=== PATIENT | male | born 2000 | race Two or more races ===

== ENCOUNTER 2018-10-15 22:31 | Emergency (ER) | payer OTHER ==
[~2018-10-15] VITALS: Ht 172.7 cm; Wt 77.1 kg
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
[2018-10-15] MEDS ORDERED: oxyCODONE/APAP 5/325 1 TAB TABLET PO ONE (23:00)
[2018-10-15] MEDS ORDERED: DIPHTH,PERTUSS(ACELL),TET TOX 0.5 ML DISP.SYRIN. VAX IM ONE (23:00)
[2018-10-15] MEDS ORDERED: AMOX500C PO (23:29)
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
[2018-10-15] MEDS ORDERED: NEOMY/BACITR/POLYMYXIN OINT PACKET. TP ONE (23:45)
[2018-10-15 23:50] VITALS: BP 129/70
== END 2018-10-15 23:50 | disposition home or self-care (01) ==
LOC: ER 22:31
DX: S02.2XXA Fracture of nasal bones, initial encounter for closed fracture (principal); R04.0 Epistaxis; W51.XXXA Accidental striking against or bumped into by another person, initial encounter; Y93.89 Activity, other specified; Y92.89 Other specified places as the place of occurrence of the external cause; Y99.8 Other external cause status
CPT/HCPCS: 70450; 70486; 90471; 90715; 99284-25

== ENCOUNTER 2019-12-29 09:55 | Emergency (ER) | payer OTHER ==
[~2019-12-29] VITALS: Ht 172.7 cm; Wt 80.6 kg
[~2019-12-29 09:55] MED LIST: AMOX500C PO
[2019-12-29 10:19] VITALS: BP 135/72
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
== END 2019-12-29 11:26 | disposition home or self-care (01) ==
LOC: ER 09:55
DX: G89.11 Acute pain due to trauma (principal); M54.2 Cervicalgia; K21.9 Gastro-esophageal reflux disease without esophagitis; F12.90 Cannabis use, unspecified, uncomplicated; Z90.49 Acquired absence of other specified parts of digestive tract; V49.9XXA Car occupant (driver) (passenger) injured in unspecified traffic accident, initial encounter; Y93.89 Activity, other specified; Y92.413 State road as the place of occurrence of the external cause; Y99.8 Other external cause status
CPT/HCPCS: 71046; 72040; 99284